=== PATIENT | female | born 1940 | race Caucasian/White ===

== ENCOUNTER 2018-06-03 01:12 | Emergency (ER) ==
[2018-06-03 01:20] VITALS: BP 126/84; TEMP 97.6; BMI 22.8
--- NOTE | 2018-06-03 01:48 | ED.PDOC ---
General ED Provider: Dr. INGRID LION Chief Complaint: Abdominal Pain Stated Complaint: Abdominal pain. Onset earlier this evening. States she ate pizza for dinner. It always upsets my stomach. Hx of Hiatal hernia and GERD. Time Seen by Physician: 01:35 Mode of Arrival: Walk-In Information Source: Patient Exam Limitations: No limitations Primary Care Provider: LIVIA BRADLEY Nursing and Triage Documentation Reviewed and Agree: Yes Does patient meet sepsis criteria?: No System Inflammatory Response Syndrome: Not Applicable Sepsis Protocol: For patient's 13 years and over: Temp is 96.8 and below OR 101 and greater Pulse >90 BPM Resp >20/minute Acutely Altered Mental Status Are patient's symptoms suggestive of a new infection, such as: -Pneumonia -Skin, Soft Tissue -Endocarditis -UTI -Bone, Joint Infection -Implantable Device -Acute Abdominal Infection -Wound Infection -Meningitis -Blood Stream Catheter Infection -Unknown Review of Systems - Review Of Systems Constitutional: Reports: No symptoms Eyes: Reports: No symptoms Ears, Nose, Mouth, Throat: Reports: No symptoms Respiratory: Reports: No symptoms Cardiac: Reports: No symptoms GI: Reports: Abdominal pain, Nausea : Reports: No symptoms Musculoskeletal: Reports: No symptoms Skin: Reports: No symptoms Neurological: Reports: No symptoms Endocrine: Reports: No symptoms Hematologic/Lymphatic: Reports: No symptoms All Other Systems: Reviewed and Negative Past Medical History - Past Medical History Previously Healthy: Yes Endocrine: Reports: None Cardiovascular: Reports: Hypertension Respiratory: Reports: None Hematological: Reports: None Gastrointestinal: Reports: GERD Genitourinary: Reports: None Neuro/Psych: Reports: None Musculoskeletal: Reports: None Cancer: Reports: None Last Menstrual Period: none - Surgical History General Surgical History: Reports: None - Family History Family History: Reports: None - Social History Smoking Status: Never smoker Hx Substance Use: No Alcohol Screening: None - Immunizations Tetanus Shot up to Date: Yes Physical Exam - Physical Exam Appearance: Ill-appearing Ill-appearing: Moderate Pain Distress: Moderate Eyes: MYRA, EOMI, Conjunctiva clear ENT: Ears normal Neck: Supple Respiratory: Airway patent, Breath sounds clear, Breath sounds equal, Respirations nonlabored Cardiovascular: RRR, Pulses normal, No rub, No murmur GI/: Soft, No masses, No Organomegaly, Tender, Bowel sounds hypoactive Musculoskeletal: Normal strength, ROM intact, No edema, No calf tenderness Skin: Warm, Dry, Normal color Neurological: Sensation intact, Motor intact, Reflexes intact, Cranial nerves intact, Alert, Oriented Psychiatric: Affect appropriate, Mood appropriate Physician Notification - Case Discussed Physician Notified: Dr José Luis STOCKTON Confucianist-Recommend admisson for additional GI evaluation Time of Notification: 04:50 (Agrees to eval patient in ER) Critical Care Note - Critical Care Note Total Time (mins): 60 Course - Course Hematology/Chemistry: 06/03/18 02:05 06/03/18 02:05 Orders, Labs, Meds: Lab Review 06/03/18 06/03/18 06/03/18 01:55 02:05 02:05 WBC 9.37 RBC 3.82 L Hgb 12.1 Hct 38.1 MCV 99.7 H MCH 31.7 H MCHC 31.8 RDW Coeff of Rosmery 12.2 Plt Count 174 Immature Gran % (Auto) 0.3 Neut % (Auto) 87.1 Lymph % (Auto) 7.3 L Heard % (Auto) 4.7 Eos % (Auto) 0.3 Baso % (Auto) 0.3 Immature Gran # (Auto) 0.0 Neut # (Auto) 8.2 H Lymph # (Auto) 0.7 Heard # (Auto) 0.4 Eos # (Auto) 0.0 Baso # (Auto) 0.0 D-Dimer (Manual) Puncture Site Lbrach O2 Saturation 95.0 ABG pH 7.383 ABG pCO2 46.2 H ABG pO2 76.0 L ABG HCO3 27.5 H ABG Total CO2 29 H ABG Base Excess 2 Joby Test + FiO2 % 21.0 Sodium 140.4 Potassium 4.01 Chloride 101.8 Carbon Dioxide 33.2 H Anion Gap 9.41 BUN 19.2 H Creatinine 0.74 Estimated GFR (MDRD) 76.00 BUN/Creatinine Ratio 25.94 Glucose 144.3 H Calcium 10.07 Total Bilirubin 0.33 AST 24.3 ALT 14.0 Alkaline Phosphatase 83.6 Troponin I Total Protein 6.94 Albumin 3.77 Globulin 3.17 Albumin/Globulin Ratio 1.18 Amylase Lipase Urine Color Urine Clarity Urine pH Ur Specific [place] Urine Protein Urine Glucose (UA) Urine Ketones Urine Blood Urine Nitrite Urine Bilirubin Urine Urobilinogen Ur Leukocyte Esterase Urine Microscopic RBC Urine Microscopic WBC Ur Squamous Epith Cells Urine Bacteria Urine Mucus 06/03/18 06/03/18 06/03/18 02:05 02:05 02:30 WBC RBC Hgb Hct MCV MCH MCHC RDW Coeff of Rosmery Plt Count Immature Gran % (Auto) Neut % (Auto) Lymph % (Auto) Heard % (Auto) Eos % (Auto) Baso % (Auto) Immature Gran # (Auto) Neut # (Auto) Lymph # (Auto) Heard # (Auto) Eos # (Auto) Baso # (Auto) D-Dimer (Manual) 918.63 Puncture Site O2 Saturation ABG pH ABG pCO2 ABG pO2 ABG HCO3 ABG Total CO2 ABG Base Excess Joby Test FiO2 % Sodium Potassium Chloride Carbon Dioxide Anion Gap BUN Creatinine Estimated GFR (MDRD) BUN/Creatinine Ratio Glucose Calcium Total Bilirubin AST ALT Alkaline Phosphatase Troponin I < 0.012 Total Protein Albumin Globulin Albumin/Globulin Ratio Amylase 113.3 H Lipase 167.5 Urine Color Urine Clarity Urine pH Ur Specific [place] Urine Protein Urine Glucose (UA) Urine Ketones Urine Blood Urine Nitrite Urine Bilirubin Urine Urobilinogen Ur Leukocyte Esterase Urine Microscopic RBC Urine Microscopic WBC Ur Squamous Epith Cells Urine Bacteria Urine Mucus 06/03/18 03:30 WBC RBC Hgb Hct MCV MCH MCHC RDW Coeff of Rosmery Plt Count Immature Gran % (Auto) Neut % (Auto) Lymph % (Auto) Heard % (Auto) Eos % (Auto) Baso % (Auto) Immature Gran # (Auto) Neut # (Auto) Lymph # (Auto) Heard # (Auto) Eos # (Auto) Baso # (Auto) D-Dimer (Manual) Puncture Site O2 Saturation ABG pH ABG pCO2 ABG pO2 ABG HCO3 ABG Total CO2 ABG Base Excess Joby Test FiO2 % Sodium Potassium Chloride Carbon Dioxide Anion Gap BUN Creatinine Estimated GFR (MDRD) BUN/Creatinine Ratio Glucose Calcium Total Bilirubin AST ALT Alkaline Phosphatase Troponin I Total Protein Albumin Globulin Albumin/Globulin Ratio Amylase Lipase Urine Color Yellow Urine Clarity Slightly Urine pH 5.5 Ur Specific [place] >=1.030 Urine Protein Negative Urine Glucose (UA) Negative Urine Ketones Negative Urine Blood Trace-intact Urine Nitrite Negative Urine Bilirubin Negative Urine Urobilinogen 0.2 Ur Leukocyte Esterase 2+ Urine Microscopic RBC 2-5 Urine Microscopic WBC 20-30 Ur Squamous Epith Cells 5-10 Urine Bacteria Trace Urine Mucus 1+ Orders Category Date Time Status ABG DRAW REQUEST Stat CARDIO 06/03/18 01:57 Completed EKG-(ED ONLY) Stat CARDIO 06/03/18 01:48 Completed NPO REMINDER: IMAGING ONCE CARE 06/03/18 05:17 Completed ABG Stat LAB 06/03/18 01:55 Completed AMYLASE Stat LAB 06/03/18 02:05 Completed CBC W/ AUTO DIFF Stat LAB 06/03/18 02:05 Completed CMP [COMPREHENSIVE METABOLIC PANEL] Stat LAB 06/03/18 02:05 Completed D-DIMER Stat LAB 06/03/18 02:30 Completed LIPASE Stat LAB 06/03/18 02:05 Completed TROPONIN I Stat LAB 06/03/18 02:05 Completed UA [URINALYSIS C & S IF INDICATED] Stat LAB 06/03/18 03:30 Completed URINE CULTURE Stat LAB 06/03/18 03:30 Completed Hydromorphone HCl [Dilaudid 1 mg/ml Syringe] MEDS 06/03/18 04:14 Discontinued 1 mg IM ONCE STA Mag-Al Plus//Lidocaine [Gi Cocktail] MEDS 06/03/18 03:18 Discontinued 30 ml PO .STK-MED ONE Mag-Al Plus//Lidocaine [Gi Cocktail] MEDS 06/03/18 03:13 Discontinued 30 ml PO ONCE STA Pantoprazole Sodium [Protonix IV] MEDS 06/03/18 04:13 Discontinued 40 mg IVP ONCE STA Sodium Chloride 0.9% [Sodium Chloride] 1,000 ml MEDS 06/03/18 04:12 Discontinued IV NOW CHEST, 2 VIEWS PA & LAT Stat RADS 06/03/18 01:[address] ABDOMEN/PELVIS WO CONTRAST Stat RADS 06/03/18 01:[address] CHEST PE PROTOCOL Stat RADS 06/03/18 05:16 Completed Medications Discontinued Medications Generic Name Dose Route Start Last Admin Trade Name Freq PRN Reason Stop Dose Admin Al Hydroxide/Mg Hydroxide 30 ml 06/03/18 03:13 06/03/18 03:21 Gi Cocktail PO 06/03/18 03:14 30 ml ONCE STA Administration Hydromorphone HCl 1 mg 06/03/18 04:14 06/03/18 04:40 Dilaudid 1 Mg/Ml Syringe IM 06/03/18 04:15 1 mg ONCE STA Administration Sodium Chloride 1,000 mls @ 125 mls/hr 06/03/18 04:12 06/03/18 04:40 Sodium Chloride IV 06/03/18 12:11 125 mls/hr NOW ONE Administration Pantoprazole Sodium 40 mg 06/03/18 04:13 06/03/18 04:40 Protonix Iv IVP 06/03/18 04:14 40 mg ONCE STA Administration Vital Signs: Temp Pulse Resp BP Pulse Ox 06/03/18 01:17 97.6 F 69 16 126/84 93 L Departure - Departure Time of Disposition: 05:00 Disposition: TSF SHORT-TRM HOSP Discharge Problem: Hiatal hernia, Partial gastric outlet obstruction, Abdominal pain Condition: Good Pt referred to PMD for follow-up: Yes IPMP verified?: No Additional Instructions: Discussed need for transfer for GI evaluatiom Allergies/Adverse Reactions: Allergies No Known Allergies Allergy (Unverified 06/03/18 01:23) Home Medications: Ambulatory Orders Aspirin [Aspir-Low] 81 mg PO DAILY 06/03/18 Escitalopram Oxalate [Lexapro] 5 mg PO DAILY 06/03/18 Lisinopril [Zestril] 40 mg PO DAILY 06/03/18 Lorazepam [Ativan] 0.5 mg PO DAILY PRN 06/03/18
--- NOTE | 2018-06-03 02:41 | DI ---
EXAM: Two-view chest HISTORY: Abdominal pain COMPARISON: None. FINDINGS: The heart is normal in size. Atherosclerotic changes are seen involving the aortic arch. They are benign granulomatous changes. There is a large high hernia with an air-fluid level. IMPRESSION: No evidence of active pulmonary disease. Large hiatal hernia with air-fluid level.
--- NOTE | 2018-06-03 02:50 | CT ---
EXAM: CT scan abdomen pelvis without contrast HISTORY: Abdominal pain COMPARISON: None. FINDINGS: All contiguous axial image was obtained through the abdomen pelvis without contrast utiliz ing 3-mm collimation. Sagittal and coronal reconstructions were imaged and reviewed. There is a larg e hiatal hernia with an air-fluid level. There has been prior cholecystectomy. There are benign gra nulomatous changes in the spleen. The liver pancreas adrenal glands have normal unenhanced CT appear ance. The kidneys are morphologically normal. There is a trace amount free fluid in the dependent p micheal. Extensive diverticulosis without diverticulitis is seen in the rectosigmoid colon.. There is normal-appearing uterus. Fullness is seen in the lower uterine segment/cervix which could be further evaluated with ultrasound if clinically indicated.. There is no CT evidence of appendicitis. Exten ds degenerative changes are seen within the lumbar spine and bilateral hips. IMPRESSION: Large hiatal hernia with an air-fluid level.. ASVD without aneurysm. Prior cholecystectomy. Diverticulosis without diverticulitis. Trace free fluid in the pelvis. Prominent lower uterine segment/cervix
[2018-06-03] MEDS ORDERED: GI COCKTAIL PO STA (03:13)
[2018-06-03] MEDS ORDERED: GI COCKTAIL PO ONE (03:18)
[2018-06-03] MEDS ORDERED: SODIUM CHLORIDE 1,000 ML IV ONE (04:12)
[2018-06-03] MEDS ORDERED: PROTONIX IV IVP STA (04:13)
[2018-06-03] MEDS ORDERED: DILAUDID 1 MG/ML SYRINGE IM STA (04:14)
--- NOTE | 2018-06-03 06:10 | CT ---
EXAM: CT angiogram chest with intravenous contrast 06/03/2018. Sagittal and coronal reformatted jason ges obtained. MIP and three-dimensional reconstructed images provided HISTORY: Elevated D-dimer COMPARISON: 06/03/18 FINDINGS: The heart size is within normal limits. No pericardial effusion. Ectasia of the ascendin g thoracic aorta up to 3.5 cm diameter. There are no pulmonary arterial filling defects to suggest pulmonary embolus. There is a large hiatal hernia. There is herniation of the majority of the stomach. Large air-fluid level. Nasogastric tube decompression may be of benefit. There is likely at least partial obstruct ion to gastric emptying. Diffuse bronchial wall thickening. This may represent bronchitis/bronchiolitis. There is no focal pulmonary consolidation. No pleural effusion or pneumothorax. Compressive atelect asis is present along the margins of the hernia sac. IMPRESSION: 1. No pulmonary embolus 2. Large hiatal hernia. There is herniation of the majority of the stomach. This is distended with gas and fluid. There is likely least partial obstruction to gastric emptying. Nasogastric tube dec ompression may be of benefit. 3. Diffuse bronchial wall thickening within both lungs. This may represent bronchitis/bronchiolitis . 4. No pulmonary consolidation, effusion or pneumothorax 5. Compressive atelectasis along the margins of the hernia sac.
== END 2018-06-03 05:30 | disposition short-term general hospital (02) ==
LOC: ED 01:12
DX: K31.1 Adult hypertrophic pyloric stenosis (principal); K44.0 Diaphragmatic hernia with obstruction, without gangrene; I10 Essential (primary) hypertension; K21.9 Gastro-esophageal reflux disease without esophagitis; Z79.899 Other long term (current) drug therapy; R10.84 Generalized abdominal pain; R79.89 Other specified abnormal findings of blood chemistry
CPT/HCPCS: 36415; 80053; 81001; 82150; 82803; 83690; 84484; 85025; 85379; 87086; 87186; 93005; 93010; 96374; 96375; 99285

== ENCOUNTER 2018-12-18 08:40 | Day surgery (SDC) ==
[2018-12-18] MEDS ORDERED: LIDOCAINE 1% 20 ML MDV ID STA (09:19)
[2018-12-18] MEDS ORDERED: LIDOCAINE 1% 20 ML MDV ID ONE (09:38)
[2018-12-18] MEDS ORDERED: DIPRIVAN 20 ML VIAL IVP ONE (10:55)
[2018-12-18] MEDS ORDERED: LIDOCAINE HCL 2% LUER-JET ONE (10:55)
[2018-12-18 11:47] VITALS: BP 121/69; TEMP 97.5
--- NOTE | 2018-12-19 11:14 | OP ---
INDICATIONS FOR PROCEDURE: 78-year-old female presents for endoscopy exam. She has intermittent dysphagia. She states that she has most difficulty with pills. She also has occasional post prandial epigastric discomfort. MEDICATIONS: SEE ANESTHESIA NOTES. PROCEDURE: ENDOSCOPY, UKRAINIAN DILATATION. REPORT: The risks, benefits, alternatives and limitations were discussed in detail with the patient. Informed consent was obtained. After adequate sedation was achieved, the video endoscope was introduced in the posterior pharynx and esophagus under direct vision and I easily advanced down to the second portion of the duodenum. I then slowly withdrew. The duodenal mucosa appeared unremarkable as did the duodenal bulb. The antrum and body were relatively unremarkable. The scope was retroflexed to look at the cardia and fundus which was unremarkable. The scope was anteflexed and withdrawn back through the esophagus. she has a large hiatal hernia with half of her stomach above the diaphragmatic hiatus. The esophagus itself appeared relatively unremarkable. The lumen was slightly tortuous. In the upper esophagus there was flat venous blebs. No other abnormalities were noted. I advanced the scope back down the gastric lumen and placed a guidewire. I then withdrew the scope. Over the guidewire I easily advanced a 51 Syriac Turkish dilator. The patient tolerated the procedure well with stable vital signs and pulse oximetry throughout. IMPRESSION: 1. LARGE HIATAL HERNIA WITH HALF OF HER STOMACH ABOVE THE DIAPHRAGM. 2. SUCCESSFUL PASSIVE DILATATION OF THE ESOPHAGUS. RECOMMENDATIONS: 1. I advised her and discussed with her about making sure she cuts and chews her food well, eats slowly, eat in a full upright position and be certain to drink plenty of fluids with her medications. If she needs to she can put some of her pills in applesauce or pudding to facilitate swallowing. 2. She is due for colonoscopy with remote history of colon polyps. I talked to her about pursuing colonoscopy. She expressed understanding. I advised her to contact our office to schedule. 3. Otherwise will see her back in the office as needed. 4. I did talk to her about surgical repair of the large hiatal hernia with her not having significant symptoms at this time. I believe the benefit is outweighed by the risks. We talked about symptoms she needs to watch for and if should develop seek medical care. CC: DR. KIRK QUINTANILLA
== END 2018-12-18 11:59 | disposition home or self-care (01) ==
LOC: SURG 08:40
PROVIDERS: ATTEND Internal Medicine Gastroenterology
DX: K44.9 Diaphragmatic hernia without obstruction or gangrene (principal); R13.10 Dysphagia, unspecified